=== PATIENT | female | born 1990 | race Caucasian/White ===

== ENCOUNTER 2025-08-01 07:57 | Emergency (ER) | payer OTHER, SELFPAY ==
[2025-08-01 08:03] VITALS: BP 151/96; PULSE 71; RESP 18; TEMP 36.6; O2SAT 99; BMI 27.4
--- NOTE | 2025-08-01 08:27 | ED_ITS ---
HPI - Wound/Laceration General Date Seen: 08/01/25 Chief Complaint: Laceration/Wound Stated Complaint: something fell on head at work Time Seen by Provider: 08/01/25 08:04 Source: patient Mode of arrival: ambulatory Limitations: no limitations History of Present Illness HPI narrative: Patient is a 34-year-old female presenting to the emergency department for laceration on the right side of her head. States she was at work when something fell and landed on her head. This occurred shortly prior to arrival. She states she initially was bleeding quite a bit but since has had bleeding under control. Denies any vision changes, weakness, numbness, lightheadedness, dizziness. She states she feels fine other than some mild pain to the area that was hit. Is not on any blood thinners. No other concerns noted at this time. States her last tetanus shot was 1 or 2 years ago. Related Data Home Medications ?Medication ?Instructions ?Recorded ?Confirmed No Known Home Medications 08/01/2507/06 Allergies Allergy/AdvReac Type Severity Reaction Status Date / Time promethazine (From Phenergan) AdvReac Intermediate Verified 08/01/25 08:08 Review of Systems Narrative: Pertinent systems reviewed and were negative unless stated in HPI Exam Narrative: Exam Narrative: Const: Well-nourished, Well-developed, in no distress Eyes: PERRL, no conjunctival injection, and symmetrical lids HENT: Atraumatic external nose and ears. Moist mucous membranes. No palpable skull fractures. 1 cm laceration noted to right posterior temporal portion along with a 1 cm laceration noted on top of the your were the ear meets scalp. MSK:Extremities w/o deformity, Normal Active ROM Skin: Warm, Dry. No rashes or lesions. Neuro: Normal Muscle tone, No focal neurological deficits. Psych: Awake, Alert, & Oriented x3. Appropriate mood and affect. Const: Vital Signs, click to edit/add: Vital Signs - 24 hr 08/01/25 08:03 Temperature 97.8 F Pulse Rate [Right Pulse Oximeter] 71 Respiratory Rate 18 Blood Pressure [Ri ght Upper Arm] 151/96 H Pulse Oximetry 99 Oxygen Delivery Me thod Room Air Course Vital Signs Vital signs: Initial Vital Signs Temperature 97.8 F 08/01/25 08:03 Temperature Source Temporal Artery Scan 08/01/25 08:03 Pulse Rate 71 10/28/25 08:03 Pulse Rhythm Regular 08/01/25 08:03 Pulse Strength 3+ Normal 08/01/25 08:03 Respiratory Rate 18 08/01/25 08:03 Blood Pressure 151/96 H 08/01/25 08:03 Blood Pressure Mean 114 H 08/01/25 08:03 Blood Pressure Position Sitting 08/01/25 08:03 Pulse Oximetry 99 08/01/25 08:03 Oxygen Delivery Method Room Air 08/01/25 08:03 Vital Signs Temperature 97.8 F 08/01/25 08:03 Pulse Rate 71 08/01/25 08:03 Respiratory Rate 18 08/01/25 08:03 Blood Pressure 151/96 H 08/01/25 08:03 Pulse Oximetry 99 08/01/25 08:03 Oxygen Delivery Method Room Air 08/01/25 08:03 Temperature 97.8 F 08/01/25 08:03 Pulse Rate 71 08/01/25 08:03 Respiratory Rate 18 08/01/25 08:03 Blood Pressure 151/96 H 08/01/25 08:03 Pulse Oximetry 99 08/01/25 08:03 Oxygen Delivery Method Room Air 08/01/25 08:03 MDM - Wound/Laceration MDM Narrative Medical decision making narrative: Patient is a 34-year-old female presenting to the emergency department after an object fell on her head at work. Is relatively heavy objects she states. Denies any neurological symptoms right now. I did not notice any palpable skull fractures. She is not on any blood thinners. I spoke to her about possible CT scan and explained in seems rather unlikely she has any bleeding or skull fracture but did offer her a CT. After shared decision making it was decided not to do a CT scan. I also spoke to her about doing skin glue verses kendrick. At this time she would prefer the skin glue. Lacerations were closed with Dermabond. She tolerated this procedure well. She is up-to-date on her tetanu s. Antibiotics not necessary. She is safe for discharge. Discharge Plan Discharge Clinical Impression: Laceration Patient Disposition: Home, Self-Care Condition: Stable Instructions: Skin Adhesive Care (ED) Additional Instructions: Skin glue will dissolve on its own over the next week. Patient can wash the area but do not scrub as this may pull off the skin glue prematurely. Pat dry the area. Do not use topical antibiotics as that will dissolve the glue faster. If worried about scar formation can place sunscreen over the area for the next 6 months whenever patient goes outside once glue is gone. Prescriptions: No Action No Known Home Medications Follow Up/Referrals: Kaylen Barker MD [Primary Care Provider, Family Practice] Stand Alone [facility]: [facility] Info Instructions Procedures Laceration Right parietal: Name of person performing procedure: Kota Lopez Site: scalp Side (If applicable): right Size (cm): 1 Description: linear and clean Depth: simple, single layer Pre-repair: wound explored, irrigated extensively and deep structures intact Skin layer closed with: other (Dermabond) Conclusion: patient tolerated procedure Right ear: Name of person performing procedure: Kota Lopez Site: other (ear) Side (If applicable): right Size (cm): 1 Description: linear and clean Depth: simple, single layer Pre-repair: wound explored, irrigated extensively and deep structures intact Skin layer closed with: other (dermabond) Conclusion: patient tolerated procedure
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
== END 2025-08-01 08:44 | disposition home or self-care (01) ==
PROVIDERS: Emergency Provider Student in an Organized Health Care Education/Training Program; PCP Student in an Organized Health Care Education/Training Program
DX: S01.01XA Laceration without foreign body of scalp, initial encounter (principal); S01.311A Laceration without foreign body of right ear, initial encounter; W22.8XXA Striking against or struck by other objects, initial encounter; Y99.0 Civilian activity done for income or pay
CPT/HCPCS: 12001; 99282; 99283